=== PATIENT | female | born 1960 | race Caucasian/White ===

== ENCOUNTER → 2017-07-25 | Outpatient (CLI) | payer OTHER ==
[~2017-07-25] MED LIST: LEVSOD88 PO; NITR100CA PO; Protonix40 MG PO; Zofran Odt4 MG PO
== END | disposition home or self-care (01) ==
LOC: LAB SHORT 16:14 → OLS 16:14
PROVIDERS: Nurse Practitioner Women's Health
DX: Z12.4 Encounter for screening for malignant neoplasm of cervix (principal); Z91.89 Other specified personal risk factors, not elsewhere classified
CPT/HCPCS: 87624; G0123

== ENCOUNTER 2018-09-22 07:12 | Day surgery (SDC) | payer OTHER ==
[~2018-09-22] VITALS: Ht 175.3 cm; Wt 84.2 kg
== END 2018-09-22 09:59 | disposition home or self-care (01) ==
LOC: ORSCSDS 07:12
PROVIDERS: Internal Medicine Gastroenterology
PROC: 0DBP8ZX Excision of Rectum, Via Natural or Artificial Opening Endoscopic, Diagnostic (ICD-10-PCS; principal; 2018-09-22 08:30)
PROC: 0DBL8ZX Excision of Transverse Colon, Via Natural or Artificial Opening Endoscopic, Diagnostic (ICD-10-PCS; principal; 2018-09-22 08:30)
DX: Z12.11 Encounter for screening for malignant neoplasm of colon (principal); D12.3 Benign neoplasm of transverse colon; K62.1 Rectal polyp; Z83.71 Family history of colonic polyps; E03.9 Hypothyroidism, unspecified; Z79.899 Other long term (current) drug therapy
CPT/HCPCS: 88305; J2704; J7120

== ENCOUNTER → 2019-01-22 | Outpatient (CLI) | payer OTHER | LOC: LAB SHORT 17:00 → LAB EV 17:00 | DX: R35.0 Frequency of micturition (principal) | CPT/HCPCS: 87086 ==

== ENCOUNTER 2021-03-17 05:34 | Emergency (ER) | payer OTHER ==
[~2021-03-17] VITALS: Ht 175.3 cm; Wt 79.4 kg
[2021-03-17] MEDS ORDERED: FINA5 PO (05:43)
[2021-03-17 06:22] LABS: BASOPHILS ABSOLUTE AUTO 0.03 K/mm3 (0.00-0.23); BASOPHILS PERCENT AUTO 0 % (0-2); EOSINOPHILS ABSOLUTE AUTO 0.04 K/mm3 (0.00-0.68); EOSINOPHILS PERCENT AUTO 0 % (0-6); Hematocrit 37.3 % (33.0-51.0); Hemoglobin 12.4 g/dL (11.5-16.0); IMMATURE GRAN ABSOLUTE AUTO 0.03 K/mm3 (0.00-0.10); IMMATURE GRAN PERCENT AUTO 0 % (0-1); LYMPHOCYTES PERCENT AUTO 11 % (21-46); MONOCYTES ABSOLUTE AUTO 0.61 K/mm3 (0.16-1.47); MONOCYTES PERCENT AUTO 5 % (4-13); Mean Corpuscular HGB 28.6 pg (26.0-34.0); Mean Corpuscular HGB Conc 33.2 g/dL (31.5-36.5); Mean Corpuscular Volume 86 fL (80-100); Mean Platelet Volume 9.2 fL (9.1-12.4); NEUTROPHILS ABSOLUTE AUTO 9.43 K/mm3 (1.96-9.15); NEUTROPHILS PERCENT AUTO 83 % (41-73); Platelet Count 232 K/mm3 (150-400); RDW Coefficient Variation 12.7 % (11.7-14.2); RDW Standard Deviation 39.7 fL (35.1-46.3); Red Blood Cell Count 4.34 M/mm3 (3.80-5.20); White Blood Cell Count 11.34 K/mm3 (4.00-11.30)
[2021-03-17 06:30] LABS: Alanine Aminotransfer (ALT/SGP 28 U/L (12-78); Albumin, Blood 3.8 g/dL (3.4-5.0); Albumin/Globulin Ratio 1.2 (0.8-1.8); Alk Phos 61 U/L (50-136); Anion Gap 6 mmol/L (6-16); Aspartate Aminotrans (AST/SGOT 17 U/L (12-37); Bilirubin, Total 0.3 mg/dL (0.1-1.0); Blood Urea Nitrogen 14 mg/dL (8-24); Bun/Creatinine Ratio 18.2 (12.0-20.0); CO2, Blood 27 mmol/L (21-32); Calcium, Blood 9.1 mg/dL (8.5-10.1); Chloride, Blood 104 mmol/L (98-108); Creatinine, Blood 0.77 mg/dL (0.40-1.00); Globulin, Blood 3.1 g/dL (2.2-4.0); Glomerular Filtration Rate >60 (60-); Glucose, Blood 135 mg/dL (70-99); Potassium, Blood 3.5 mmol/L (3.5-5.5); Sodium, Blood 137 mmol/L (136-145); Total Protein, Blood 6.9 g/dL (6.4-8.2)
[2021-03-17 07:33] LABS: Source, Urine Clean Catch
[2021-03-17 07:37] LABS: Appearance, Urine Clear (Clear); Bilirubin, Urine Neg (Neg); Blood, Urine Neg (Neg); Color, Urine Yellow (P-Yellow); Glucose Qualitative, Urine Neg (Neg); Ketones, Urine Neg (Neg); Leukocyte Esterase, Urine Neg (Neg); Nitrite, Urine Neg (Neg); Protein, Urine Neg (Neg); Urobilinogen, Urine NORM (Normal)
[2021-03-17] MEDS ORDERED: HYDR1TAB94 PO (08:34)
== END 2021-03-17 08:25 | disposition home or self-care (01) ==
LOC: ER 05:34
PROVIDERS: Emergency Medicine
DX: K80.20 Calculus of gallbladder without cholecystitis without obstruction (principal); D72.829 Elevated white blood cell count, unspecified; E03.9 Hypothyroidism, unspecified; Z88.0 Allergy status to penicillin; Z79.899 Other long term (current) drug therapy
CPT/HCPCS: 36415; 76705; 80053; 81003; 83690; 85025; 96374; 96375; 99284-25; J2405; J3010; J7030

== ENCOUNTER 2022-09-02 10:38 | Day surgery (SDC) | payer OTHER ==
[~2022-09-02] VITALS: Ht 175.3 cm; Wt 81.9 kg
[~2022-09-02 10:38] MED LIST changes: +FINA5 PO; +HYDR1TAB94 PO; +IBUP600 PO; +ONDA4ODT MM
[2022-09-02] MEDS ORDERED: PROG100 (11:25)
[2022-09-02] MEDS ORDERED: ZINC15 (11:26)
[2022-09-02] MEDS ORDERED: MAGNESIUM OXID500 MG (11:27)
[2022-09-02] MEDS ORDERED: CYTO-Q T/F8 MG/1 ML (11:27)
[2022-09-02] MEDS ORDERED: ESTRADIOL42.5 GM (11:28)
[2022-09-02] MEDS ORDERED: [UNRECOGNIZED DRUG - OTHER] (11:29)
[2022-09-02] MEDS ORDERED: Estrace Vagin42.5 GM (11:29)
[2022-09-02] MEDS ORDERED: NATURES BOUNTY (11:30)
[2022-09-02 13:51] VITALS: BP 107/59
== END 2022-09-02 13:45 | disposition home or self-care (01) ==
LOC: ORSCSDS 10:38
PROVIDERS: Internal Medicine Gastroenterology
PROC: 0DBP8ZX Excision of Rectum, Via Natural or Artificial Opening Endoscopic, Diagnostic (ICD-10-PCS; principal; 2022-09-02 12:00)
DX: Z12.11 Encounter for screening for malignant neoplasm of colon (principal); Z86.010 Personal history of colon polyps; Z83.71 Family history of colonic polyps; K62.1 Rectal polyp; K64.8 Other hemorrhoids; K57.30 Diverticulosis of large intestine without perforation or abscess without bleeding; E03.9 Hypothyroidism, unspecified; Z79.899 Other long term (current) drug therapy
CPT/HCPCS: 88305; J2704; J7120

== ENCOUNTER → 2022-09-17 | Outpatient (CLI) | payer OTHER | END | disposition home or self-care (01) | LOC: LAB 07:45 | DX: R07.9 Chest pain, unspecified (principal) ==

== ENCOUNTER 2022-10-15 11:31 | Day surgery (SDC) | payer OTHER ==
[~2022-10-15] VITALS: Ht 171 cm; Wt 82.1 kg
[2022-10-15] VITALS (15 sets, daily range): BP systolic 100–150; BP diastolic 47–76
[~2022-10-15 11:31] MED LIST changes: +CYTO-Q T/F8 MG/1 ML; +ESTRADIOL42.5 GM; +Estrace Vagin42.5 GM; +MAGNESIUM OXID500 MG; +NATURES BOUNTY; +PROG100; +ZINC15; +[UNRECOGNIZED DRUG - OTHER]
--- NOTE | 2022-10-15 12:47 | NUR ---
Ambulatory in Day Surgery History, Chart, Medications and Allergies reviewed before start of procedure.Patient confirms NPO status and agrees with scheduled surgery. Patient reports completing Chlorhexadine shower X2 prior to admission to hospital.Surgical site prepped with 2% Chlorhexidine cloth wipe. Patient States Post-Procedure ride home has been arranged.
--- NOTE | 2022-10-15 14:55 | NUR ---
PT TO DAY SURGERY FROM PACU, REPORT RECEIEVED FROM ANNA ALEX. PT AWAKE AND OREIENTED X3; LAYING WITH HER EYES SHUT, BUT RESPOND WHEN SPOKEN TO. ICE CHIPS GIVEN. PT HAS 4 SMALL INCISIONS THAT ARE COVERED WITH STERI STRIPS AND ARE C/D/I.
--- NOTE | 2022-10-15 15:10 | NUR ---
ICE PACK TO ABD. NO CHANGE IN INCIIONS, C/D/I. BOYFRIEND AT SIDE. CRACKERS GIVEN; TOLERATING WELL.
--- NOTE | 2022-10-15 16:00 | NUR ---
PT REPORTS INCISIONAL PAIN HAS IMPROVED A LOT, BUT IS HAVING VERY UNCOMFORTABLE GAS PAINS. PT ALSO FEELS LIKE HER HEAD IS STILL FUZZY. DOES NOT WANT THE 2ND NORCO YET AND DOES NOT FEEL READY TO TRY AND GET DRESSED. HAS MOVED POSITIONS IN BED.
--- NOTE | 2022-10-15 16:31 | NUR ---
Patient up to Ambulate independently. Gait steady. Discharge instructions reviewed with patient. Patient verbalizes understanding. Copy given to patient to take home. Patient States Post-Procedure ride home has been arranged. Discharged via wheelchair to private car for ride home.
== END 2022-10-15 16:31 | disposition home or self-care (01) ==
LOC: ORSCMMR 11:31 → ORD 13:00 → ORSCMMR 13:00
PROVIDERS: Surgery
PROC: BF031ZZ Plain Radiography of Gallbladder and Bile Ducts using Low Osmolar Contrast (ICD-10-PCS; principal; 2022-10-15 13:00)
PROC: 0FT44ZZ Resection of Gallbladder, Percutaneous Endoscopic Approach (ICD-10-PCS; principal; 2022-10-15 13:00)
DX: K80.10 Calculus of gallbladder with chronic cholecystitis without obstruction (principal); E03.9 Hypothyroidism, unspecified; Z79.899 Other long term (current) drug therapy
CPT/HCPCS: 74300; 88304; A9270; C1729; J0690; J1100; J1885; J2250; J2405; J2704; J2765; J3010; J7120

== ENCOUNTER → 2024-02-20 | Outpatient (CLI) | payer OTHER | END | disposition home or self-care (01) | LOC: LAB 19:09 → LAB SHORT 19:09 | DX: N39.0 Urinary tract infection, site not specified (principal) | CPT/HCPCS: 87077; 87086; 87186 ==

== ENCOUNTER 2024-08-17 06:40 | Day surgery (SDC) | payer OTHER ==
[~2024-08-17] VITALS: Ht 175.3 cm; Wt 83.7 kg
[2024-08-17] MEDS ORDERED: PROBIOTIC1 EA14 PO (06:57)
[2024-08-17] MEDS ORDERED: CRANBERRY125 MG PO (06:57)
[2024-08-17 08:41] VITALS: BP 105/62
== END 2024-08-17 08:46 | disposition home or self-care (01) ==
LOC: ORSCSDS 06:40
PROVIDERS: Surgery
PROC: 0DJD8ZZ Inspection of Lower Intestinal Tract, Via Natural or Artificial Opening Endoscopic (ICD-10-PCS; principal; 2024-08-17 08:00)
DX: Z12.11 Encounter for screening for malignant neoplasm of colon (principal); Z86.0101 Personal history of adenomatous and serrated colon polyps; K57.30 Diverticulosis of large intestine without perforation or abscess without bleeding; Z79.899 Other long term (current) drug therapy
CPT/HCPCS: J2704; J7120

== ENCOUNTER → 2024-12-28 | Outpatient (CLI) | payer SELFPAY ==
[~2024-12-28] MED LIST changes: +CRANBERRY125 MG PO; +PROBIOTIC1 EA14 PO
== END ==
LOC: LAB SHORT 17:31 → LAB 17:31
DX: N30.01 Acute cystitis with hematuria (principal)
CPT/HCPCS: 87077; 87086; 87186

== ENCOUNTER → 2025-01-18 | Outpatient (CLI) | payer SELFPAY | LOC: LAB 12:40 → LAB SHORT 12:40 | PROVIDERS: Physician Assistant | DX: Z01.419 Encounter for gynecological examination (general) (routine) without abnormal findings (principal) | CPT/HCPCS: 87624; G0145 ==